=== PATIENT | male | born 2000 | race Caucasian/White ===

== ENCOUNTER → 2021-04-16 17:04 | Outpatient (CLI) | payer OTHER, MEDICAID, SELFPAY ==
--- NOTE | 2021-04-16 17:10 | DI.RAD.S_ITS ---
PROCEDURE: XR HAND RT MIN 3V INDICATIONS: injured thumb TECHNIQUE: 3 views of the hand(s) acquired. COMPARISON: None. FINDINGS: Bones: No fractures or dislocations. Carpal bones are normally aligned. No suspicious bony lesions. Soft tissues: No suspicious soft tissue calcifications. IMPRESSION: Normal study. Dictated by: Hardeep Gerber M.D. on 04/16/2021 at 16:22 Approved by: Hardeep Gerber M.D. on 04/16/2021 at 16:23
== END ==
PROVIDERS: PCP Family Medicine; Referring Provider Student in an Organized Health Care Education/Training Program; Visit Provider Student in an Organized Health Care Education/Training Program
DX: M79.641 Pain in right hand (principal)
CPT/HCPCS: 73130

== ENCOUNTER → 2022-05-26 10:45 | Outpatient (CLI) | payer OTHER, SELFPAY ==
[2022-05-26 12:18] LABS: Add Manual Diff / Slide Review NO; Basophils Absolute Auto 0 /uL (0-100); Basophils Percent Auto 0.6 % (0-2); Eosinophils Absolute Auto 100 /uL (0-450); Eosinophils Percent Auto 0.9 % (2-4); Hematocrit 43.7 % (41-53); Hemoglobin 14.3 g/dL (13.5-17.5); Lymphocytes Absolute Auto 1600 /uL (1100-4500); Lymphocytes Percent Auto 26.4 % (25-40); Mean Corpuscular HGB Conc 32.8 % (30-36); Mean Corpuscular Hemoglobin 29.9 PG (26-34); Mean Corpuscular Volume 91.4 fL (80-100); Monocytes Absolute Auto 500 /uL (0-900); Neutrophils Absolute Auto 3800 /uL (1500-7000); Neutrophils Percent Auto 64.1 % (50-75); Platelet Count 182 X10^3/uL (150-400); Red Blood Cell Count 4.78 X10^6/uL (4.5-5.9); Red Cell Distribution Width 13.9 % (11.6-14.8)
[2022-05-26 12:56] LABS: Alanine Aminotransferase 49 IU/L (<50); Albumin 4.6 g/dL (3.5-5.0); Albumin Globulin Ratio 1.7 (1.0-2.8); Alkaline Phosphatase 56 U/L (38-126); Aspartate Aminotransferase 57 IU/L (17-59); BUN Creatinine Ratio 25.6 (6-22); Bilirubin Total 0.2 mg/dL (0.2-1.3); Blood Urea Nitrogen 22 mg/dL (9-20); Calcium 9.2 mg/dL (8.4-10.2); Carbon Dioxide 28 mmol/L (22-32); Chloride 104 mmol/L (98-107); Estimated Glomerular Filt Rate > 60 mL/min (>60); Globulin 2.7 g/dL (1.7-4.1); Glucose 93 mg/dL (70-100); HEMOLYSIS < 15 (0-50); Potassium 4.4 mmol/L (3.4-5.1); Sodium 141 mmol/L (137-145); Total Protein 7.3 g/dL (6.3-8.2)
[2022-05-26 13:18] LABS: TSH w/ Reflex to FT4 1.19 uIU/mL (0.47-4.68)
== END ==
PROVIDERS: PCP Family Medicine; Referring Provider Family Medicine; Visit Provider Family Medicine
DX: F32.A Depression, unspecified (principal); F41.9 Anxiety disorder, unspecified; R00.2 Palpitations
CPT/HCPCS: 36415; 80053; 84443; 85025

== ENCOUNTER 2022-06-07 23:13 | Emergency (ER) | payer OTHER, SELFPAY ==
[2022-06-07 23:19] VITALS: BP 163/93; PULSE 123; RESP 18; TEMP 36.9; O2SAT 99; BMI 20.2
--- NOTE | 2022-06-07 23:24 | ED_ITS ---
HPI - Arrhythmia/Palpitations General Chief Complaint: Arrhythmia/Palpitations Stated Complaint: racing heart Time Seen by Provider: 06/07/22 23:16 Source: patient Mode of arrival: Ambulatory History of Present Illness HPI narrative: 22-year-old male smoker and daily drinker of 2-3 beers with admitted history of anxiety presents feeling anxious with a racing heart. He states that he was feeling fine in his normal state of health until he smoked a joint and soon thereafter started feeling anxious and noticed his heart to be racing. He feels a bit jittery and lightheaded. He denies any suicidal or homicidal ideations. He denies any other change in diet. He states his caffeine intake is about 1-2 cups per day. He is had multiple prior episodes of racing heart and there seems to be somewhat of a pattern of it following the ingestion of substances such as caffeine or marijuana. He denies chest pain or shortness of breath. He has no fever, chills and denies any recent nausea, vomiting or diarrhea. Related Data Allergies Allergy/AdvReac Type Severity Reaction Status Date / Time No Known Drug Allergies Allergy Unverified 02/18/21 14:12 Review of Systems Review of Systems Narrative: GENERAL: See HPI HEENT: Denies sinus pain, ear pain, sore throat, difficulty swallowing, dizziness. RESPIRATORY: Denies dyspnea, cough, wheezing, hemoptysis, sputum. CARDIOVASCULAR: See HPI GASTROINTESTINAL: Denies nausea, vomiting, abdominal pain, diarrhea, constipation, melena. : Denies dysuria, frequency, incontinence, hematuria, urinary retention. MUSCULOSKELETAL: denies weakness, joint pain, or bony pain SKIN: Denies rash, skin lesions, or other NEUROLOGIC: Denies weakness, headache, numbness, change in speech, confusion, seizures, incoordination. PSYCHIATRIC: See HP 12 point review of systems is negative except for those stated above Patient History Medical History Anxiety and depression (~2019) Chronic back pain (~2017) Foot pain (~2019) Social History Smoking Status: Current some day smoker Smoking Status: Current some day smoker alcohol intake frequency: 3 or more drinks per day Alcohol type: beer Substance Use Type: marijuana Exam Narrative Exam Narrative: GENERAL: [22] year old patient appears stated age. Well-developed patient, in mild distress. HEAD: Atraumatic. Normocephalic. EYES: Pupils equal round and reactive. Extraocular motions intact. No scleral icterus. No injection or drainage. ENT: Nose without bleeding, purulent drainage. Throat without erythema, tonsillar hypertrophy or exudate. Airway patent. NECK: Trachea midline. Non tender CARDIOVASCULAR: Tachycardic regular rhythm without murmurs, gallops, or rubs. RESPIRATORY: Clear to auscultation. Breath sounds equal bilaterally. No wheezes, rales, or rhonchi. GASTROINTESTINAL: Abdomen soft, non-tender, nondistended. EXTREMITIES: No edema or joint tenderness. BACK: Nontender without deformity or crepitance. No flank tenderness. NEURO: AOx3. SKIN: No rash or erythema of visible areas Initial Vital Signs Initial Vital Signs: Vital Signs Temperature 98.4 F 06/07/22 23:19 Pulse Rate 123 H 06/07/22 23:19 Respiratory Rate 18 06/07/22 23:19 Blood Pressure 163/93 H 06/07/22 23:19 Pulse Oximetry 99 06/07/22 23:19 Oxygen Delivery Method Room Air 06/07/22 23:19 Course Orders Ordered: ED Orders 06/07/22 23:25 Ethanol (ETOH) Stat Urine Drug Screen, Rapid Stat 06/07/22 23:26 Complete Blood Count AUTO DIFF Stat Comprehensive Metabolic Panel Stat Lipase Stat Magnesium Stat Discontinued Medications Sodium Chloride (Normal Saline 0.9%) 1,000 mls @ 1,000 mls/hr IV BOLUS ONE Stop: 06/08/22 00:24 Last Infusion: 06/08/22 00:33 Dose: Infused Lorazepam (Lorazepam 2 Mg/Ml Inj) 0.5 mg IV NOW ONE Stop: 06/07/22 23:39 Last Admin: 06/07/22 23:42 Dose: 0.5 mg Vital Signs Vital signs: Vital Signs - 8 hr 06/07/22 23:19 06/08/22 00:00 Temperature 98.4 F Pulse Rate 123 H 98 H Respiratory Rate 18 15 Blood Pressure 163/93 H 157/60 H Pulse Oximetry 99 97 Oxygen Delivery Method Room Air MDM - Arrhythmia/Palpitations Lab Data 06/07/22 23:35 06/07/22 23:35 Labs: Lab Results 06/07/22 06/07/22 06/07/22 Range/Units 23:35 23:35 23:35 WBC 7.1 (4.5-11.0) X10^3/uL RBC 4.46 L (4.5-5.9) X10^6/uL Hgb 13.7 (13.5-17.5) g/dL Hct 39.7 L (41-53) % MCV 89.2 (80-100) fL MCH 30.7 (26-34) PG MCHC 34.5 (30-36) % RDW 13.6 (11.6-14.8) % Plt Count 175 (150-400) X10^3/uL Neut % (Auto) 64.1 (50-75) % Lymph % (Auto) 27.9 (25-40) % [place] % (Auto) 6.9 (3-14) % Eos % (Auto) 0.6 L (2-4) % Baso % (Auto) 0.5 (0-2) % Neut # (Auto) 4600 (4973-0431) /uL Lymph # (Auto) 2000 (8873-3923) /uL [place] # (Auto) 500 (0-900) /uL Eos # (Auto) 0 (0-450) /uL Baso # (Auto) 0 (0-100) /uL Sodium 137 (137-145) mmol/L Potassium 3.5 (3.4-5.1) mmol/L Chloride 103 (98-107) mmol/L Carbon Dioxide 27 (22-32) mmol/L BUN 18 (9-20) mg/dL Creatinine 0.80 (0.66-1.25) mg/dL Estimated GFR > 60 (>60) mL/min BUN/Creatinine Ratio 22.5 H (6-22) Glucose 134 H (70-100) mg/dL Calcium 9.2 (8.4-10.2) mg/dL Magnesium 1.8 (1.6-2.3) mg/dL Total Bilirubin 0.4 (0.2-1.3) mg/dL AST 47 (17-59) IU/L ALT 35 (<50) IU/L Alkaline Phosphatase 47 (38-126) U/L Total Protein 7.2 (6.3-8.2) g/dL Albumin 4.5 (3.5-5.0) g/dL Globulin 2.7 (1.7-4.1) g/dL Albumin/Globulin Ratio 1.7 (1.0-2.8) Lipase 54 (23-300) U/L Ethyl Alcohol < 10 ( - 10) mg/dL ECG Data Interpretation: [2327] EKG is normal sinus rhythm rate [ 127] and free of any signs of ischemia or ectopy. No ST segmental elevation or depression. No T wave inversions MDM Narrative Medical decision making narrative: [22] year old patient presents with racing heart and anxiety after smoking cannabis Multiple etiologies for patient's symptoms considered including, but not limited to: [Anxious response, response to cannabis, electrolyte abnormality, dehydration versus other] Prior Charts reviewed in our EMR Primary Historian: patient Labs reviewed and interpreted by myself: EKG results interpreted by myself and noted above Patient admittedly tends to run a bit anxious. He was feeling fine unwell until smoking marijuana, the temporal relationship can not be ignored. He states that it isn't necessarily a new strain or new supplier, he doubts any unknown additives. Other diagnoses such as electrolyte abnormality, anemia, sepsis and others are unlikely given history, physical, response to therapies temporal relationship of symptoms with smoking cannabis Patient's symptoms improved over duration of stay with above-stated therapies. Findings and discharge diagnosis discussed with patient/family followed by verbalization of understanding Return precautions discussed with patient/family whom verbalize understanding of diagnosis and plan Discharge Plan Departure Patient Disposition: Home Clinical Impression: Heart palpitations, Regular sinus tachycardia Instructions: DI for Tachycardia Activity Restrictions/Additional Instructions: *You have been diagnosed with [sinus tachycardia. As we discussed your history and physical exam are reassuring as are labs and response to typical therapies.] *What to do: *Please continue to take your regular medications as directed. *Please follow up with your primary care provider in 2-3 days, call for an appointment. Let them know you were seen in the Emergency Department and that we ask that you be seen in follow up. We will electronically transmit a record of today's note if your PCP is in our system *Please consider avoiding substances *Return to Emergency Department if you should have any new, worsening or concerning symptoms, such as [fever greater than 101 F, shaking chills, worsening pain, persistent vomiting or other bothersome symptoms] Referrals: Scooby Caal MD [Primary Care Provider] - Stand Alone Forms: Patient Portal/API, Work Release Note
[2022-06-07] MEDS: SODIUM CHLORIDE 0.9% 1,000 ML 1000 ML IV (23:30)
[2022-06-07] MEDS: LORazepam 2 MG/ML INJ 0.5 MG IV (23:42)
[2022-06-07 23:51] LABS: Add Manual Diff / Slide Review NO; Basophils Absolute Auto 0 /uL (0-100); Basophils Percent Auto 0.5 % (0-2); Eosinophils Absolute Auto 0 /uL (0-450); Eosinophils Percent Auto 0.6 % (2-4); Hematocrit 39.7 % (41-53); Hemoglobin 13.7 g/dL (13.5-17.5); Lymphocytes Absolute Auto 2000 /uL (1100-4500); Lymphocytes Percent Auto 27.9 % (25-40); Mean Corpuscular HGB Conc 34.5 % (30-36); Mean Corpuscular Hemoglobin 30.7 PG (26-34); Mean Corpuscular Volume 89.2 fL (80-100); Monocytes Absolute Auto 500 /uL (0-900); Monocytes Percent Auto 6.9 % (3-14); Neutrophils Absolute Auto 4600 /uL (1500-7000); Neutrophils Percent Auto 64.1 % (50-75); Platelet Count 175 X10^3/uL (150-400); Red Blood Cell Count 4.46 X10^6/uL (4.5-5.9); Red Cell Distribution Width 13.6 % (11.6-14.8); White Blood Cell Count 7.1 X10^3/uL (4.5-11.0)
[2022-06-07 23:52] LABS: Ethanol (ETOH) < 10 mg/dL
[2022-06-07 23:53] LABS: Alanine Aminotransferase 35 IU/L (<50); Albumin 4.5 g/dL (3.5-5.0); Albumin Globulin Ratio 1.7 (1.0-2.8); Alkaline Phosphatase 47 U/L (38-126); Aspartate Aminotransferase 47 IU/L (17-59); BUN Creatinine Ratio 22.5 (6-22); Bilirubin Total 0.4 mg/dL (0.2-1.3); Blood Urea Nitrogen 18 mg/dL (9-20); Calcium 9.2 mg/dL (8.4-10.2); Carbon Dioxide 27 mmol/L (22-32); Chloride 103 mmol/L (98-107); Estimated Glomerular Filt Rate > 60 mL/min (>60); Globulin 2.7 g/dL (1.7-4.1); Glucose 134 mg/dL (70-100); HEMOLYSIS 25 (0-50); Lipase 54 U/L (23-300); Magnesium 1.8 mg/dL (1.6-2.3); Potassium 3.5 mmol/L (3.4-5.1); Sodium 137 mmol/L (137-145); Total Protein 7.2 g/dL (6.3-8.2)
[2022-06-07 23:59] VITALS: PULSE 100; O2SAT 97
[2022-06-08] VITALS: BP 123/60; BP 157/60; PULSE 98; RESP 15; O2SAT 96; O2SAT 97
[2022-06-08 00:30] VITALS: BP 115/60; PULSE 89; O2SAT 95
== END 2022-06-08 00:44 | disposition home or self-care (01) ==
PROVIDERS: Emergency Provider Emergency Medicine; PCP Family Medicine
DX: R00.2 Palpitations (principal); R00.0 Tachycardia, unspecified
CPT/HCPCS: 36415; 80053; 80320; 83690; 83735; 85025; 93005; 96374; 99284; J2060

== ENCOUNTER → 2022-07-14 08:05 | Outpatient (CLI) | payer OTHER, SELFPAY ==
--- NOTE | 2022-07-14 08:08 | DI.ECHO.S_ITS ---
[facility]---------+ [facility] +---------+ : : [address] : : : : [id number] : : : : Phone: [phone]+ Echocardiogram Report + + :Name: GIUSEPPE PRADO Study Date: 07/14/2022 Height: 71 in : :[facility] ReadingLocation: Weight: 140 lb : : Gender: Male BSA: 1.8 m2 : :: 2000 Age: 22 yrs BP: 112/71 mmHg: :Reason For Study: PALPITATIONS HR: 85 : :Ordering Physician: MILY, : :DEBORA Performed By: JULIA UNDERWOOD : :Referring: DEBORA MINOR : + + Interpretation Summary Normal left ventricle size with borderline reduced systolic function and ejection fraction 50-55%. No valvular abnormality. Procedure: A two-dimensional transthoracic echocardiogram with color flow and Doppler was performed. The study quality was technically adequate. There is no prior echocardiogram noted for this patient. The patient was in normal sinus rhythm during the exam. The patient had occasional PVCs during the exam. Left Ventricle: The left ventricle is normal in size and wall thickness. Left ventricular systolic function is borderline reduced. The ejection fraction is estimated to be 50-55%. There are no focal wall motion abnormalities. Diastolic parameters suggest probable normal left ventricular diastolic function and normal filling pressures. Right Ventricle: The right ventricle is normal in size and function. Atria: Both atria are normal in size. There is no Doppler evidence for an atrial septal defect. Mitral Valve: The mitral valve is normal in structure and function. There is no mitral regurgitation noted. Aortic Valve: The aortic valve is trileaflet. The aortic valve opens well. There is no aortic valve stenosis. There is trace aortic regurgitation. Tricuspid Valve: The tricuspid valve is normal in structure and function. No tricuspid regurgitation. Pulmonary artery pressures cannot be estimated because of the lack of a measurable TR jet velocity. Pulmonic Valve: The pulmonic valve leaflets are thin and pliable; valve motion is normal. There is mild pulmonic regurgitation. Great Vessels: The aortic root is normal size. The ascending aorta is normal in size. The IVC is of normal diameter and collapses greater than 50% with a sniff. This suggests a low right atrial pressure of 3 mm Hg. Pericardium/ Pleura There is no pericardial effusion. There is no pleural effusion. MMode/2D Measurements & Calculations LVIDd: 5.1 cm LVOT diam: 2.0 cm LVIDs: 3.4 cm Ao root diam: 2.9 cm FS: 33.2 % asc Aorta Diam: 2.6 cm IVSd: 0.62 cm LVPWd: 0.91 cm LV bolton. diameter/BSA (cm/m^2): 2.8 LV sys. diameter/BSA (cm/m^2): 1.9 LA A2 area: 13.4 cm2 RA long axis: 3.5 cm LA A4 area: 8.3 cm2 RA area: 10.7 cm2 LA length (vol): 4.0 cm RA vol: 27.9 ml LA vol: 23.2 ml RA : 15.4 ml/m2 LA vol index: 12.8 ml/m2 IVC diam: 1.1 cm TAPSE: 1.7 cm Doppler Measurements & Calculations Ao V2 max: 132.1 cm/sec LVOT Max Justice: 86.6 cm/sec Ao V2 mean: 86.1 cm/sec LV V1 max P.0 mmHg Ao max P.0 mmHg LV V1 VTI: 14.7 cm Ao mean P.5 mmHg ANA(I,D): 2.1 cm2 Ao V2 VTI: 22.4 cm ANA(V,D): 2.1 cm2 sev ratio: 0.66 ANA indexed to BSA (cm^2/m^2): 1.1 MV E max justice: 72.9 cm/sec PA V2 max: 87.5 cm/sec MV A max justice: 51.3 cm/sec PA V2 mean: 66.2 cm/sec MV E/A: 1.4 PA mean P.9 mmHg Med Peak E' Justice: 11.6 cm/sec PA pr(Accel): 5.4 mmHg E/E' med: 6.3 Lat Peak E' Justice: 15.8 cm/sec E/E' lat: 4.6 E/e' average: 5.4 MV dec time: 0.17 sec SV(LVOT): 46.1 ml Electronically signed by: Elbert Yadav on Reading Physician:07/14/2022 11:05 AM
--- NOTE | 2022-07-14 08:08 | DI.NM.S_ITS ---
PROCEDURE: NM EXERCISE TREADMILL NON NUC COMPARISON: None INDICATIONS: Palpitations FINDINGS: Rest ECG sinus rhythm, occasional PVCs. [place] protocol 13:11, maximum heart rate 179 bpm (91% peak predicted), maximum blood pressure 182/82, 14.8 METS, SONAM +14%. Stress ECG sinus tachycardia, no ST segment changes, occasional PVCs noted. The patient did not complain of exercise-induced chest pain. IMPRESSION: Low risk study. 1. No evidence of exercise-induced ischemia or arrhythmia. PVCs noted at rest and with exercise. 2. Normal hemodynamic response. 3. Slightly reduced exercise capacity. Dictated by: Angela Ellis D.O. on 07/14/2022 at 14:50 Approved by: Angela Ellis D.O. on 07/14/2022 at 14:54
== END ==
PROVIDERS: PCP Family Medicine; Referring Provider Nurse Practitioner Family; Visit Provider Nurse Practitioner Family
DX: I37.1 Nonrheumatic pulmonary valve insufficiency (principal); R00.2 Palpitations; F41.9 Anxiety disorder, unspecified
CPT/HCPCS: 93017; 93306

== ENCOUNTER → 2022-07-16 09:47 | Outpatient (CLI) | payer OTHER, SELFPAY | PROVIDERS: PCP Family Medicine; Referring Provider Family Medicine; Visit Provider Family Medicine | DX: R00.2 Palpitations (principal) | CPT/HCPCS: 93246 ==

== ENCOUNTER → 2022-12-14 16:09 | Outpatient (CLI) | payer OTHER, MEDICAID, SELFPAY | PROVIDERS: PCP Family Medicine; Visit Provider Registered Nurse | DX: J02.9 Acute pharyngitis, unspecified (principal) | CPT/HCPCS: 87070; 87880 ==

== ENCOUNTER → 2023-11-27 12:13 | Outpatient (CLI) | payer OTHER, MEDICAID, SELFPAY ==
--- NOTE | 2023-11-27 12:15 | DI.RAD.S_ITS ---
PROCEDURE: XR SHOULDER LT MIN 2V INDICATIONS: L index finger concerns; may be r/t shoulder impingement TECHNIQUE: 3 views of the shoulder were acquired. COMPARISON: None. FINDINGS: Bones: No fractures or dislocations. No suspicious bony lesions. Visualized ribs appear intact. Soft tissues: No suspicious soft tissue calcifications. IMPRESSION: No acute bony abnormality. Dictated by: Mario Hughes M.D. on 11/27/2023 at 15:42 Approved by: Mario Hughes M.D. on 11/27/2023 at 15:43
== END ==
PROVIDERS: PCP Family Medicine; Referring Provider Family Medicine; Visit Provider Family Medicine
DX: R29.898 Other symptoms and signs involving the musculoskeletal system (principal)
CPT/HCPCS: 73030

== ENCOUNTER → 2023-12-02 12:29 | Outpatient (CLI) | payer OTHER, MEDICAID, SELFPAY ==
--- NOTE | 2023-12-02 12:31 | DI.RAD.S_ITS ---
PROCEDURE: XR SHOULDER RT MIN 2V INDICATIONS: R shoulder pain TECHNIQUE: 3 views of the shoulder were acquired. COMPARISON: [facility], CR, XR SHOULDER LT MIN 2V, 11/27/2023, 11:24. FINDINGS: Bones: No fractures or dislocations. No suspicious bony lesions. Visualized ribs appear intact. Soft tissues: No suspicious soft tissue calcifications. IMPRESSION: No acute osseous abnormality. If pain persists with conservative management, consider repeat x-ray in 10-14 days or cross-sectional imaging. Dictated by: Adarsh Mccormack M.D. on 12/02/2023 at 16:29 Approved by: Adarsh Mccormack M.D. on 12/02/2023 at 16:29
--- NOTE | 2023-12-02 12:31 | DI.RAD.S_ITS ---
PROCEDURE: XR FINGER LT MIN 2V INDICATIONS: L index finger pain TECHNIQUE: AP hand, 2 views of the 2nd finger(s) acquired. COMPARISON: None. FINDINGS: Bones: No fractures or dislocations. No suspicious bony lesions. Soft tissues: No suspicious soft tissue calcifications. IMPRESSION: No acute osseous abnormality. If pain persists with conservative management, consider repeat x-ray in 10-14 days or cross-sectional imaging. Dictated by: Adarsh Mccormack M.D. on 12/02/2023 at 16:28 Approved by: Adarsh Mccormack M.D. on 12/02/2023 at 16:29
== END ==
PROVIDERS: PCP Family Medicine; Referring Provider Family Medicine; Visit Provider Family Medicine
DX: S46.911A Strain of unspecified muscle, fascia and tendon at shoulder and upper arm level, right arm, initial encounter (principal); M79.645 Pain in left finger(s); X58.XXXA Exposure to other specified factors, initial encounter
CPT/HCPCS: 73030; 73140

== ENCOUNTER → 2024-03-22 14:11 | Outpatient (CLI) | payer OTHER, SELFPAY ==
--- NOTE | 2024-03-22 14:12 | DI.RAD.S_ITS ---
PROCEDURE: XR FINGER LT MIN 2V INDICATIONS: chronic pain @ index MCP knuckle x 1 yr TECHNIQUE: AP hand, 2 views of the 2nd finger(s) acquired. COMPARISON: [facility], , XR FINGER LT MIN 2V, 12/02/2023, 12:50. FINDINGS: Bones: No acute displaced fracture or dislocation. No erosive osseous changes. Soft tissues: No suspicious calcifications. IMPRESSION: No acute radiographic abnormality. Given persistent symptoms, MRI could further evaluate if necessary. Dictated by: Davide Wong M.D. on 03/23/2024 at 14:41 Approved by: Davide Wong M.D. on 03/23/2024 at 14:42
== END ==
PROVIDERS: PCP Family Medicine; Referring Provider Physician Assistant; Visit Provider Physician Assistant
DX: M79.645 Pain in left finger(s) (principal)
CPT/HCPCS: 73140

== ENCOUNTER → 2025-01-03 15:38 | Outpatient (CLI) | payer SELFPAY ==
[2025-01-03 15:42] LABS: Urine Drug Scr, Empl Non-NIDA See Separate Report
== END ==
PROVIDERS: PCP Family Medicine
DX: Z02.1 Encounter for pre-employment examination (principal)
CPT/HCPCS: 81099